=== PATIENT | male | born 1985 | race Caucasian/White ===

== ENCOUNTER 2018-04-16 15:48 | Emergency (ER) | payer MEDICAID ==
[2018-04-16] MEDS ORDERED: Acetaminophen/oxyCODONE 325-5 MG Tab PO ONE (16:09)
--- NOTE | 2018-04-16 16:13 | EDM.PDOC ---
ED HPI GENERAL MEDICAL PROBLEM - General Chief Complaint: Upper Extremity Injury/Pain Stated Complaint: BROKE HAND Time Seen by Provider: 04/16/18 16:11 Source of Information: Reports: Patient History Limitations: Reports: No Limitations - History of Present Illness INITIAL COMMENTS - FREE TEXT/NARRATIVE: pt had the hitch of a log splitter come down on his rt hand, dorsal aspect by the hand. Onset: Today, Sudden Duration: Hour(s): Location: Reports: Upper Extremity, Right Associated Symptoms: Reports: Other (pain in the rt hand. ) Right Hand Pain Score (Numeric/FACES): 8 - Related Data Allergies Allergy/AdvReac Type Severity Reaction Status Date / Time No Known Allergies Allergy Verified 04/16/18 16:21 Home Meds: Home Meds NK [No Known Home Meds] 04/16/18 [History] Review of Systems - Review of Systems Review Of Systems: See Below Constitutional: Reports: No Symptoms Eyes: Reports: No Symptoms Ears: Reports: No Symptoms Nose: Reports: No Symptoms Mouth/Throat: Reports: No Symptoms Respiratory: Reports: No Symptoms Cardiovascular: Reports: No Symptoms Musculoskeletal: Reports: Other (painfu rt hand) ED EXAM, GENERAL - Physical Exam Exam: See Below Free Text/Narrative:: pt arrived with a painful hand by the rt thumb. He was injured by the hitch of the log splitter. Exam Limited By: No Limitations General Appearance: Alert, Anxious Extremities: Other (pt has swelling and tenderness on the dorsum of the hand by the rt thumb. ) Neurological: Alert, Oriented, Normal Cognition Course - Vital Signs Last Recorded V/S: Last Vital Signs Temp 36.4 C 04/16/18 16:18 Pulse 86 04/16/18 16:18 Resp 18 04/16/18 16:18 BP 152/93 H 04/16/18 16:18 Pulse Ox 96 04/16/18 16:18 - Orders/Labs/Meds Meds: Medications Discontinued Medications Generic Name Dose Route Start Last Admin Trade Name Freq PRN Reason Stop Dose Admin Oxycodone/Acetaminophen 1 tab 04/16/18 16:09 04/16/18 16:16 Percocet 325-5 Mg PO 04/16/18 16:10 1 tab ONETIME ONE Administration - Re-Assessments/Exams Free Text/Narrative Re-Assessment/Exam: 04/21/18 21:14 pt has a communited fracture, mildly displaced at the base of the rt thumb. Departure - Departure Time of Disposition: 16:55 Disposition: Home, Self-Care 01 Condition: Fair Clinical Impression: Fracture of thumb, right, closed - Discharge Information Instructions: Thumb Fracture Referrals: PCP,None [Primary Care Provider] - Forms: ED Department Discharge Care Plan Goals: elevate and cool pack, leave the splint in place, appt with ortho Wednesday. norco 5/325 q6h prn for pain. # 10
== END 2018-04-16 17:08 | disposition home or self-care (01) ==
LOC: EDSEX → JP.ED 15:48
DX: S62.231A Other displaced fracture of base of first metacarpal bone, right hand, initial encounter for closed fracture (principal); W22.8XXA Striking against or struck by other objects, initial encounter
CPT/HCPCS: 73130; 99284; A9270